=== PATIENT | male | born 1940 | race Caucasian/White ===

== ENCOUNTER 2018-06-11 16:06 | Inpatient (IN) | payer OTHER, BC ==
[~2018-06-11] VITALS: Ht 182.9 cm; Wt 121.9 kg
[2018-06-11 16:13] VITALS: BP 123/74
[2018-06-11 17:14] LABS: ABSOLUTE NEUTROPHILS 4.6 thou/uL (1.4-8.2); BASOPHILS 0.8 % (0.0-2.0); EOSINOPHILS 3.6 % (0.0-3.0); HEMATOCRIT 39.4 % (42.0-52.0); HEMOGLOBIN 13.5 gm/dL (14.0-18.0); LYMPHOCYTES 12.3 % (24.0-44.0); MCHC 34.2 g/dL (28.0-37.0); MCV 90.7 fL (80.0-100.0); MONOCYTES 9.1 % (1.0-8.0); PLATELET COUNT 202 thou/uL (150-400); POLYS 74.2 % (36.0-66.0); RBC 4.35 mil/uL (4.50-6.00); WBC 6.2 thou/uL (4.0-11.0)
[2018-06-11 17:31] LABS: ANION GAP 5 mmol/L (7-16); BUN 15 mg/dL (7-18); CALCIUM 9.1 mg/dL (8.5-10.1); CHLORIDE 95 mmol/L (98-107); CO2 33 mmol/L (21-32); CREATININE 1.1 mg/dL (0.7-1.3); GLUCOSE 124 mg/dL (74-106); POTASSIUM 3.4 mmol/L (3.5-5.1); SODIUM 133 mmol/L (136-145)
[2018-06-11 17:37] LABS: ALBUMIN 2.8 g/dL (3.4-5.0); SGOT 33 U/L (15-37); SGPT 27 U/L (30-65); TOTAL BILIRUBIN 0.5 mg/dL (<0.1-1.0); TOTAL PROTEIN 6.3 g/dL (6.4-8.2); TROPONIN-I <0.06 ng/mL (<0.06)
[2018-06-11 19:37] LABS: URINE BILIRUBIN NEGATIVE (Negative); URINE BLOOD NEGATIVE (Negative); URINE CLARITY CLEAR; URINE COLOR YELLOW; URINE GLUCOSE-RANDOM* NEGATIVE (Negative); URINE KETONES NEGATIVE (Negative); URINE LEUKOCYTES-REFLEX NEGATIVE (Negative); URINE NITRITE-REFLEX NEGATIVE (Negative); URINE PROTEIN (DIPSTICK) TRACE (Negative); URINE SPECIFIC GRAVITY >= 1.030 (1.005-1.035)
[2018-06-11 23:09] VITALS: BP 101/60
[2018-06-12 00:30] VITALS: BP 125/74
--- NOTE | 2018-06-12 02:37 | EKG ---
[address] [place] [address] ELECTROCARDIOGRAM REPORT Name: SANAZ DEL RIO Room #: 201-P ADM IN M.R.#: [id number] ������������������ Admission: 06/11/18 ������������������ Attend Phys: Harshad Frederick MD Discharge: ������������������ Date of : 42 Report #: [id number] ����������������������������������������������������������������� [id number] THIS REPORT FOR: //name// [facility] ED Test Date: 2018-06-11 Test Time: 17:42:26 Pat Name: SANAZ DEL RIO Department: Room: 201 Gender: M [employer]: EVANGELINA : 1940 Requested By: Rajinder Seaman Order Number: [id number] MD: Jose Alfredo Guevara Measurements Intervals [place] Rate: 91 P: 36 OR: 164 QRS: 8 QRSD: 96 T: 33 QT: 360 QTc: 443 Interpretive Statements Sinus rhythm Nonspecific ST-T wave changes No previous ECG available for comparison Electronically Signed On 06-12-2018 2:37:26 MINING HELPER by Jose Alfredo Guevara [email or web address] ��������������������������������������������� <ELECTRONICALLY SIGNED> ���������������������������������������� By: Jose Alfredo Guevara MD ��������������������������������������������� 06/12/18 0237 [id number] Jose Alfredo Guevara MD /PRERNA
[2018-06-12 04:37] VITALS: BP 108/51
[2018-06-12 05:43] LABS: HEMOGLOBIN 12.9 gm/dL (14.0-18.0); MCH 30.2 pg (26.0-34.0); MCHC 33.2 g/dL (28.0-37.0); RBC 4.28 mil/uL (4.50-6.00); RDW 13.8 % (10.5-14.5)
[2018-06-12 06:08] LABS: CALCIUM 8.6 mg/dL (8.5-10.1); CREATININE 0.9 mg/dL (0.7-1.3); POTASSIUM 3.3 mmol/L (3.5-5.1)
--- NOTE | 2018-06-12 06:47 | NUR ---
PATIENT WAS AN ER ADMIT ADMITTED AT 23:50 WITH SOA. PT IS ALERT BUT VERY DROWSY. PT IS STABLE WITH 3.5L OF NC OF OXYGEN ON PATIENT. NO FAMILY AT BEDSIDE. VITAL SIGNS STABLE. ADMISSION ASSESSMENT AND EDUCATION COMPLETED. NO SCHEDULED MEDS ADMINISTERED TO PT. PT IS HAVING LABORED BREATHING. DENIES ANY PAIN. NO FURTHER NEEDS AT THIS TIME.
[2018-06-12 07:18] VITALS: BP 129/82
[2018-06-12 11:31] VITALS: BP 138/58
[2018-06-12 12:21] LABS: BE(vivo) 2.5 mmol/L (-2 to +3); HCO3 30.5 mmol/L (22.0-26.0); PCO2 62.4 mmHg (35.0-45.0); PO2 70.1 mmHg (80.0-100.0); pH 7.307 (7.360-7.450); sO2 92.1 % (92.0-98.0)
[2018-06-12 19:25] VITALS: BP 123/70
--- NOTE | 2018-06-13 04:28 | NUR ---
PT ON BIPAP SINCE BEDTIME, PT HAS SLEEP APNEA, ALSO GETS SOB WITH EXERTION. NOCURTNAL STUDY COULD NOT BE DONE WHILE PT ON BIPAP, PER RT. PT SLEEPY AND DROWSY BUT EASILY AROUSABLE AND ORIENTED WHEN AWAKE. VITALS WNL.
[2018-06-13 06:01] VITALS: BP 138/72
[2018-06-13 07:43] VITALS: BP 144/68
[2018-06-13 15:15] VITALS: BP 119/60
[2018-06-13 19:28] VITALS: BP 133/66
--- NOTE | 2018-06-13 19:34 | NUR ---
PATIENT ALERT AND ORIENTED X4, NORMAL SINUS RHYTHM ON BARK PEELER. ON 3L NASAL CANNULA, BIPAP AT NIGHT. TOLERATING DIET. UP WITH STANDBY ASSISTANCE, PATIENT WALKED HALLWAY X4, MILD SHORTNESS OF BREATH WITH INCREASED ACTIVITY. PATIENT AND FAMILY UPDATED ON THE PLAN OF CARE, NO SIGNS OF ACUTE DISTRESS NOTED AT THIS TIME. WILL CONTINUE TO MONITOR.
[2018-06-14] VITALS (8 sets, daily range): BP systolic 143–148; BP diastolic 59–74
[2018-06-14 04:02] LABS: CALCIUM 8.7 mg/dL (8.5-10.1); CREATININE 0.8 mg/dL (0.7-1.3); MAGNESIUM 2.5 mg/dL (1.8-2.4); POTASSIUM 4.7 mmol/L (3.5-5.1)
--- NOTE | 2018-06-14 05:51 | NUR ---
ASSUME CARE 1900. PT/VITALS STBALE. DENIES ANY PAIN AT THIS TIME. UP WITH STB ASSIST AND WALKER TO BATHROOM. ASSESSMETN CHARTED. PROGRESSING WITH POC. PLAN IS TO CONTINUE WEANING PT OFF O2. ALSO, SUSPECTED SLEEP APNEA AND MIGHT BENEFIT FORM BIPAP AT NIGHT AND ANYTIME OF SLEEP. PULMONARY FOLLOWWING WITH PT FOR INPROVED RESP FUNCTION. PLAN IS POOSIBLE [facility] OUTPATIENT ANFD TO FOLLOW WITH THE PULMONARY CLINIC GERTRUDIS THE SLEEP STUDY. WILL CONTINUE TO MONITOR AND FOLLOW WITH POC
[2018-06-14] MEDS ORDERED: PREDNISONE 20 M20 M1 PO (11:56)
--- NOTE | 2018-06-14 16:39 | NUR ---
IT, HELP DESK CALLED FOR 6 ERONEOUS BP ON PCI THAT WAS A REPEAT OF THE PATIENTS 8 AM VITAL SIGNS. IN STATUS BOARD SAME VITAL SIGNS ARE REPEATED 6 DIFFERENT TIMES. TALKED TO CHERYL/CATHIE. NUMBER [id number].
--- NOTE | 2018-06-14 18:02 | NUR ---
MET WITH PATIENT WHO WILL DC HOME WITH OXYGEN TODAY. PATIENT WITH NEED OF BIPAP. HE WILL NEED OUTPATIENT SLEEP STUDY TO QUALIFY PATIENT REPORTS HE IS AWARE. ARRANGED HOME OXYGEN VIA [facility] ON SERVICE WITH [facility] [facility]. NO FURTHER NEEDS
== END 2018-06-14 17:54 | disposition home or self-care (01) | DRG 70 ==
LOC: ER 16:06 → 2N 22:12 → EROBS 22:12 → 2N 06-12 00:08
PROVIDERS: Emergency Medicine; Internal Medicine; Nurse Practitioner Family; Pediatrics; Physician Assistant; ADMIT Hospitalist
PROC: 5A09357 Assistance with Respiratory Ventilation, Less than 24 Consecutive Hours, Continuous Positive Airway Pressure (ICD-10-PCS; principal; 2018-06-12)
PROC: 5A09357 Assistance with Respiratory Ventilation, Less than 24 Consecutive Hours, Continuous Positive Airway Pressure (ICD-10-PCS; 2018-06-13)
PROC: 5A09357 Assistance with Respiratory Ventilation, Less than 24 Consecutive Hours, Continuous Positive Airway Pressure (ICD-10-PCS; 2018-06-14)
DX: G93.41 Metabolic encephalopathy (principal); J96.01 Acute respiratory failure with hypoxia; J96.02 Acute respiratory failure with hypercapnia; E87.1 Hypo-osmolality and hyponatremia; F11.20 Opioid dependence, uncomplicated; E66.01 Morbid (severe) obesity due to excess calories; G47.33 Obstructive sleep apnea (adult) (pediatric); J44.9 Chronic obstructive pulmonary disease, unspecified; C43.9 Malignant melanoma of skin, unspecified; I10 Essential (primary) hypertension; G89.29 Other chronic pain; M54.5 Low back pain; E87.8 Other disorders of electrolyte and fluid balance, not elsewhere classified; R73.9 Hyperglycemia, unspecified; D64.9 Anemia, unspecified; E87.6 Hypokalemia; Z87.891 Personal history of nicotine dependence; Z68.36 Body mass index [BMI] 36.0-36.9, adult
CPT/HCPCS: 10081

== ENCOUNTER → 2018-06-25 | Outpatient (CLI) | payer BC, OTHER ==
[~2018-06-25] MED LIST: PREDNISONE 20 M20 M1 PO
--- NOTE | 2018-06-29 20:01 | SLE ---
[facility] [place] [address] POLYSOMNOGRAPHY STUDY Name: SANAZ DEL RIO Room #: [facility].#: [id number] Admission: 06/25/18 ������������������ Attend Phys: Priyank Grewal MD Discharge: ������������������ Date of : 42 Report #: [id number] THIS REPORT FOR: //name// CC: Priyank Martinez DATE OF SERVICE: 06/25/2018 ATTENDING PHYSICIAN: Dr. Rayshawn Martinez. The patient is a 78-year-old who weighs 270 pounds with a BMI of 36.6. The patient has severe subjective hypersomnia with an [place] score of 18. The patient underwent diagnostic sleep study at [facility]. During the night study, the patient spent 367 minutes in bed and slept for 55 minutes with a sleep efficiency of only 15%. Sleep latency was 17.2 minutes with absent REM sleep. Overall, sleep architecture showed increased stage 1 and stage 2 sleep. There was increased N3 sleep and absent REM sleep. It was a very poor quality sleep. During the night study, the patient had 29 hypopneas. There were no apneas. The patient's apnea-hypopnea index was 31.6 per hour. The REM sleep was not observed. The patient's supine index was 31.8 per hour. It was a difficult study for the sound effects technician. The patient kept removing EEG electrodes and sound effects technician had to place them multiple times. There was lot of muscle and movement artifact as well and very limited sleep seen. EKG monitoring revealed an average heart rate of 98 beats per minute with a maximum 118 beats per minute. Frequent PVCs were observed. PLMS were seen at an index of 240 per hour and 51 per hour caused EEG arousals. Nocturnal oximetry study revealed an average oxygen saturation of 88% with lows of 81%. Fifty minutes were spent at an oxygen saturation of less than 89%. Due to the limited sleep time CPAP could not be initiated. IMPRESSION: 1. Severe sleep apnea-hypopnea syndrome at an AHI of 31.6 per hour from very limited sleep of 55 minutes only 2. Severe insomnia during the night of the study. 3. Severe periodic limb movements. [facility] [address] [address] POLYSOMNOGRAPHY STUDY Name: SANAZ DEL RIO Room #: [facility].#: [id number] Admission: 06/25/18 ������������������ Attend Phys: Priyank Grewal MD Discharge: ������������������ Date of : 42 Report #: [id number] 4. Nocturnal hypoxia secondary to obstructive sleep apnea. RECOMMENDATIONS: 1. The patient would benefit from in-lab CPAP titration study. 2. The patient's insomnia should be further evaluated and treated prior to return to the sleep lab in order to have a longer sleep period for an effective titration. 3. Weight loss is strongly advised. 4. Avoid DOOR FURRING INSTALLER depressants. 5. Cautioned regarding driving until symptoms of sleep apnea resolved with above recommendations. 6. PLMS can be treated with dopaminergic agonist agents if the patient is clinically symptomatic. The patient should also be further evaluated for symptoms of restless legs during the day. ��������������������������������������������� <ELECTRONICALLY SIGNED> ���������������������������������������� By: Priyank Grewal MD ��������������������������������������������� 06/29/182000 01 22 Priyank Grewal MD /nt
== END ==
LOC: SLEEPLAB 09:42
DX: G47.33 Obstructive sleep apnea (adult) (pediatric) (principal); G47.61 Periodic limb movement disorder; G47.00 Insomnia, unspecified; R09.02 Hypoxemia